=== PATIENT | female | born 1955 | race Caucasian/White ===

== ENCOUNTER → 2020-01-02 | Outpatient (CLI) | payer MEDICARE | END | disposition home or self-care (01) | LOC: ROC 07:21 | PROVIDERS: ATTEND Radiology Radiation Oncology | DX: C34.12 Malignant neoplasm of upper lobe, left bronchus or lung (principal); C79.31 Secondary malignant neoplasm of brain | CPT/HCPCS: G0463 ==

== ENCOUNTER 2020-01-09 08:57 | Outpatient (CLI) | payer MEDICARE ==
[2020-01-09] MEDS ORDERED: GADOTERATE 7.5 MMOL/15 ML SYR ONE (09:53)
== END 2020-01-09 23:59 | disposition home or self-care (01) ==
LOC: CFH 08:57
PROVIDERS: ATTEND Radiology Radiation Oncology
DX: C79.31 Secondary malignant neoplasm of brain (principal); I10 Essential (primary) hypertension
CPT/HCPCS: 70553; A9575

== ENCOUNTER 2020-02-27 08:51 | Outpatient (CLI) | payer MEDICARE | END 2020-02-27 23:59 | disposition home or self-care (01) | LOC: ROC 08:51 | PROVIDERS: ATTEND Radiology Radiation Oncology | DX: Z08 Encounter for follow-up examination after completed treatment for malignant neoplasm (principal); C79.31 Secondary malignant neoplasm of brain; I10 Essential (primary) hypertension | CPT/HCPCS: G0463 ==

== ENCOUNTER → 2020-04-30 | Outpatient (CLI) | payer MEDICARE | END | disposition home or self-care (01) | LOC: ROC 08:27 | PROVIDERS: ATTEND Radiology Radiation Oncology | DX: C79.31 Secondary malignant neoplasm of brain (principal); C34.12 Malignant neoplasm of upper lobe, left bronchus or lung | CPT/HCPCS: G0463 ==

== ENCOUNTER 2020-07-31 09:21 | Outpatient (CLI) | payer MEDICARE | END 2020-07-31 23:59 | disposition home or self-care (01) | LOC: ROC 09:21 | PROVIDERS: ATTEND Radiology Radiation Oncology | DX: Z08 Encounter for follow-up examination after completed treatment for malignant neoplasm (principal); C79.31 Secondary malignant neoplasm of brain | CPT/HCPCS: G2012 ==

== ENCOUNTER → 2020-09-09 | Outpatient (CLI) | payer MEDICARE | END | disposition home or self-care (01) | LOC: ROC 08:22 | PROVIDERS: ATTEND Radiology Radiation Oncology | DX: Z08 Encounter for follow-up examination after completed treatment for malignant neoplasm (principal); Z85.841 Personal history of malignant neoplasm of brain | CPT/HCPCS: G0463 ==

== ENCOUNTER → 2020-11-12 | Outpatient (CLI) | payer MEDICARE | END | disposition home or self-care (01) | LOC: ROC 07:57 | PROVIDERS: ATTEND Radiology Radiation Oncology | DX: Z08 Encounter for follow-up examination after completed treatment for malignant neoplasm (principal); Z85.841 Personal history of malignant neoplasm of brain | CPT/HCPCS: G0463 ==

== ENCOUNTER 2021-01-22 09:46 | Outpatient (CLI) | payer MEDICARE | END 2021-01-22 23:59 | disposition home or self-care (01) | LOC: ROC 09:46 | PROVIDERS: ATTEND Radiology Radiation Oncology | DX: Z08 Encounter for follow-up examination after completed treatment for malignant neoplasm (principal); Z85.841 Personal history of malignant neoplasm of brain | CPT/HCPCS: G0463 ==

== ENCOUNTER 2021-05-21 08:13 | Outpatient (CLI) | payer MEDICARE | END 2021-05-21 23:59 | disposition home or self-care (01) | LOC: ROC 08:13 | PROVIDERS: ATTEND Radiology Radiation Oncology | DX: C79.31 Secondary malignant neoplasm of brain (principal) | CPT/HCPCS: G0463 ==